=== PATIENT | female | born 1960 | race Caucasian/White ===

== ENCOUNTER 2020-02-24 00:20 | Outpatient (CLI) | payer BC, SELFPAY ==
[2020-02-24 17:33] LABS: SARS-CoV-2 RNA PCR Negative
== END 2020-02-24 00:21 | disposition home or self-care (01) ==
LOC: ANHCOVIDDT 00:20
PROVIDERS: Visit Provider Obstetrics & Gynecology
DX: Z01.818 Encounter for other preprocedural examination (principal); Z11.59 Encounter for screening for other viral diseases
CPT/HCPCS: 87635; C9803; U0003

== ENCOUNTER 2020-02-24 09:30 | Outpatient (CLI) | payer BC, SELFPAY | END 2020-02-24 09:31 | disposition home or self-care (01) | LOC: ANHLAB 09:32 | PROVIDERS: Visit Provider Obstetrics & Gynecology | DX: Z01.818 Encounter for other preprocedural examination (principal); R10.2 Pelvic and perineal pain | CPT/HCPCS: 36415; 86850; 86900; 86901 ==

== ENCOUNTER 2020-02-26 00:50 | Day surgery (SDC) | payer BC, SELFPAY ==
[2020-02-23 15:52] VITALS: BMI 29.5
--- NOTE | 2020-02-24 09:44 | P.HP_ITS ---
H&P: HPI History of Present Illness Chief complaint: pain bilateral ovarian cyst Narrative: Dionne Singh is a 59 year old female [place] post hysterectomy who is admitted for laparoscopic bilateral salpingo- oophorectomy. She has severe pain discomfort dyspareunia [place] bilateral ovarian cysts the pain more than right but she insists both ovaries are removed. The a list and benefits were reviewed including but not exclusive of , perforation, bleeding, transfusion, perforation injury to bowel, bladder, ureters or other internal organs with need for laparotomy. She voiced understanding. All questions answered she received the ACOG handout, completing the anastomosis Review of Systems Review of Systems: All systems reviewed & are unremarkable except as noted in HPI and below Meds Home Medications and Allergies Home Medications Medication Instructions Recorded Confirmed Type multivitamin 1 tablet PO DAILY 02/23/20 02/23/20 History omeprazole 20 mg PO DAILY PRN 02/23/20 02/23/20 History rizatriptan 10 mg PO ONCE PRN 02/23/20 02/23/20 History topiramate 100 mg PO BID 02/23/20 02/23/20 History Allergies Allergy/AdvReac Type Severity Reaction Status Date / Time Sulfa (Sulfonamide Allergy Unknown Hives Verified 02/23/20 15:53 Antibiotics) Exam Const: General: no acute distress Eyes: General: appearance normal, both eyes and all related structures Neck: Neck: supple and no JVD Thyroid: thyroid normal Resp: Effort & Inspection: normal respiratory effort Auscultation: clear to auscultation bilaterally Cardio: Rate: regular rate Rhythm: regular rhythm GI: Inspection: non-distended GI Palp: Yes Soft to palpation, No Tenderness to palpation present (GI) and No Guarding due to palpation present (GI) Auscultation: normal bowel sounds : General: Yes bladder normal to inspection External Female Exam: normal external appearance Speculum Exam - Vagina: normal appearance of the vagina Speculum Exam - Cervix: Cervix absent Bimanual exam- vagina & uterus: uterus absent Bimanual Exam- Adnexa, other: tender bilaterally Skin: General skin exam: no rashes or lesions noted Extrem: General: normal to inspection and no edema Psych: Mental Status: mental status grossly normal Affect: normal affect Assessment and Plan Additional Plan impression: bilateral ovarian cyst Plan: Laparoscopic bilateral salpingo-oophorectomy
[2020-02-26] VITALS (11 sets, daily range): BP systolic 112–150; BP diastolic 38–91; PULSE 42–83; RESP 12–18; TEMP 36.1–36.3; O2SAT 95–100
--- NOTE | 2020-02-26 06:22 | WPDHPUPDATE1 ---
History and Physical Update Update Date/Time: 02/26/20 06:22 History and Physical has been reviewed, including an updated exam of the patient. There are NO changes in the patient's condition. Risks, benefits, and alternatives have been discussed and questions answered. Patient agrees to proceed with procedure.
[2020-02-26] MEDS: LACTATED RINGERS 1,000 ML 30 ML IV CONT ×2 (10:30→12:23)
--- NOTE | 2020-02-26 10:58 | WPDANESEPPF ---
Anes - Initial Pre Proc Eval Procedure: Operation Date: 02/26/20 12:15 Proposed Procedures p Laparoscopy Bilateral Salpingo-Oophorectomy - David Islas MD Date/Time: 02/26/20 10:58 Surgeon: David Islas MD Pre Op Diagnosis: pain bilateral ovarian cyst Patient Data Age: 59 Gender: F Height: 5 ft 3 in Weight: 75.45 kg Allergies Allergy/AdvReac Type Severity Reaction Status Date / Time Sulfa (Sulfonamide Allergy Severe Hives Verified 02/26/20 10:59 Antibiotics) Home Medications Medication Instructions Recorded Confirmed Type multivitamin 1 tablet PO DAILY 02/23/20 02/23/20 History omeprazole 20 mg PO DAILY PRN 02/23/20 02/23/20 History rizatriptan 10 mg PO ONCE PRN 02/23/20 02/23/20 History topiramate 100 mg PO BID 02/23/20 02/23/20 History hydrocodone-acetaminophen [[place]] 1 tablet PO Q4H PRN #30 tablet 02/26/20 Rx Patient hx anesthesia problems: none Family hx anesthesia problems: none PMFSH Past Medical History Medical History (Updated 02/26/20 @ 10:58 by Freddy Denis MD) GERD (gastroesophageal reflux disease) Migraine Anes - Eval Final PreProcedure Day of Procedure 02/26/20 10:58 Patient weight: normal Heart: regular rate and rhythm Lungs: clear to auscultation Airway: Mallampati scale class II Neurological: alert and oriented Last oral intake: >/= 8 hours ASA classification: II Emergent: no Anesthetic plan: proceed Anesthesia type and monitoring: general ETT and standard monitoring Informed Consent: The patient's anesthetic plan and its attendant risks and benefits were discussed with the patient/family/POA. Questions were solicited and answers provided to the satisfaction of the patient/family/POA.
--- NOTE | 2020-02-26 12:15 | P.OP_ITS ---
Procedure Note - Detailed Date of procedure: 02/26/20 Pre-op diagnosis: pain bilateral ovarian cyst Surgeon: David Islas MD Postop diagnosis: Pain/bilateral ovarian cysts Procedure: Laparoscopic bilateral salpingo-oophorectomy EBL: 5Cc Anesthesia: General endotracheal Findings: Absent uterus and cervix bilateral ovarian cysts benign in nature. Mild adhesions Complications: Description of procedure: The patient was prepped and draped in normal sterile fashion placed in dorsal lithotomy position. Under excellent general trach anesthesia sponge stick was placed in the vagina the bladder drained of clear urine. Gloves were changed. An infraumbilical incision made and the Veress needle passed in the abdomen. Abdomen filled with CO2 gas [id number]. 5mm trocar advanced under direct visualization assuring no injury. The patient was placed in Trendelenburg and right left lateral quadrant incisions were made 5mm trocar was advanced in the left lower quadrant and a 10mm trocar was advanced into the right lateral quadrant under direct visualization both assuring no injury. Adhesions were s een and these were sharply dissected until the vaginal cuff area was clear. The right infundibulopelvic structure was skeletonized clamped,, and the ovary and tube complex placed in the cul-de-sac. Like fashion infundibulopelvic structure left was skeletonized clamped cut and placed in the cul-de-sac a right lower quadrant bag was placed in each ovary and tube were placed in the bag removed through the right lower quadrant incision. Irrigation was undertaken to clear pedicles appeared without bleeding. Irrigation was undertaken last time lower sites removed. The gas removed from the abdomen the upper site. Incisions closed 4 Monocryl. All sponge, needle, instrument counts were correct. There were no immediate complications
--- NOTE | 2020-02-26 15:03 | SUR.PHASEII ---
1500; PT DRESSED. WALKED TO BATHROOM. GAIT STEADY.
== END 2020-02-26 15:18 | disposition home or self-care (01) ==
PROVIDERS: PCP Family Medicine; Visit Provider Obstetrics & Gynecology
PROC: (CPT 49320; principal; 2020-02-26 12:15)
DX: D27.9 Benign neoplasm of unspecified ovary (principal); N83.209 Unspecified ovarian cyst, unspecified side; N73.6 Female pelvic peritoneal adhesions (postinfective); R10.2 Pelvic and perineal pain; K21.9 Gastro-esophageal reflux disease without esophagitis
CPT/HCPCS: 58661; 88305; 88307; A9270; J0131; J1100; J2250; J2405; J2704; J2710; J3010; J7120

== ENCOUNTER 2021-02-09 14:33 | Outpatient (CLI) | payer BC, SELFPAY ==
--- NOTE | ~2021-02-09 | MM_ITS ---
EXAMINATION: MM screening [facility] BI w makayla HISTORY: Screening mammogram TECHNIQUE: Craniocaudal and mediolateral oblique 3-D tomosynthesis images were obtained and synthetic 2-D images were generated. CAD analysis was submitted and interpreted. COMPARISON: 09/13/2017, 04/02/2014, 03/26/2012 BREAST PARENCHYMAL COMPOSITION: The breasts are heterogeneously dense, which may obscure small masses . FINDINGS: There are clips in the posterior upper outer left breast from prior reportedly benign left breast biopsy. There is no evidence of suspicious mass, calcification, or architectural distortion to suggest malignancy in either breast. There has been no suspicious interval change. IMPRESSION: 1. No mammographic evidence of malignancy. 2. Recommend routine screening mammography in one year. BI-RADS Category 2: Benign finding(s). Reviewed, dictated and finalized at location A.
== END 2021-02-09 14:34 | disposition home or self-care (01) ==
LOC: ANHIMG 14:35
PROVIDERS: Visit Provider Obstetrics & Gynecology
DX: Z12.31 Encounter for screening mammogram for malignant neoplasm of breast (principal)
CPT/HCPCS: 77063; 77067

== ENCOUNTER 2023-07-31 09:59 | Outpatient (CLI) | payer BC, SELFPAY ==
--- NOTE | ~2023-07-31 | MM_ITS ---
EXAMINATION: MM screening [facility] BI w makayla HISTORY: Screening mammogram TECHNIQUE: Craniocaudal and mediolateral oblique 3-D tomosynthesis images were obtained and synthetic 2-D images were generated. CAD analysis was submitted and interpreted. COMPARISON: 02/09/2021, 09/13/2017, 04/02/2014 BREAST PARENCHYMAL COMPOSITION: There are scattered areas of fibroglandular density. FINDINGS: Changes of excisional biopsy are noted in the upper outer quadrant of the left breast. No s uspicious mass, calcification, or architectural distortion are identified in either breast to suggest malignancy. There has been no suspicious interval change. IMPRESSION: 1. No mammographic evidence of malignancy. 2. Recommend routine screening mammography in one year. BI-RADS Category 2: Benign finding(s). Reviewed, dictated and finalized at location A. [employer]
== END 2023-07-31 10:00 | disposition home or self-care (01) ==
LOC: ANHIMG 10:02
PROVIDERS: Visit Provider Obstetrics & Gynecology
DX: Z12.31 Encounter for screening mammogram for malignant neoplasm of breast (principal)
CPT/HCPCS: 77063; 77067